=== PATIENT | female | born 1985 | race Caucasian/White ===

== ENCOUNTER 2020-05-27 20:04 | Emergency (ER) | payer OTHER, SELFPAY ==
--- NOTE | ~2020-05-27 | CT_ITS ---
EXAMINATION: CT abdomen pelvis w con EXAM DATE: 05/27/2020 20:52 INDICATION: Abdominal pain. TECHNIQUE: Spiral CT of the abdomen and pelvis was performed following intravenous injection of 100 m L Omnipaque 350. Axial, coronal and sagittal images were reviewed. The dose-length product (DLP) fo r this examination was 174.24 mGy-cm. The exposure was tailored according to patient size (auto mA e xposure control), and iterative reconstruction (ASIR) was used as additional dose reduction technique . There is no prior study for comparison. FINDINGS: There is a gastrostomy tube in position. Along the tract of the gastrostomy tube there is f luid collection consistent with abscess causing inflammation, thickening of the abdominal wall. This measures about 3 x 4 x 5 cm. There is also moderate amount of free intraperitoneal gas, from unknown source. If gastrostomy tube was placed today potentially could be from that. There is also gas extend ing between the left-sided abdominal musculature layers. Small to moderate amount of free pelvic fluid, with some enhancement of the peritoneal surface adjace nt to this, possible peritonitis. No contained abdominal abscess suspected. Low-lying cecum measuring 9 cm in diameter with large amount of hyperdense material inside which could be contrast if patient had scan at another facility. The appendix is also filled with material, no appendicitis. The liver, spleen, adrenal glands and pancreas are unremarkable. Gallbladder is unremarkable. No bi liary obstruction. Portal and splenic veins are patent. Kidneys enhance symmetrically. There is no hydronephrosis. The uterus is retroverted and morphologically normal. The bladder is unremarkabl e. There is no retroperitoneal or pelvic lymphadenopathy. The heart is normal in size. There are no pericardial or pleural effusions. The lung bases are unre markable. There are no osteoblastic or osteolytic lesions identified. IMPRESSION: 1. Gastrostomy tube in position. Abdominal wall abscess contiguous to the gastrostomy tube. Gas betw een layers of left abdominal musculature. 2. Moderate amount of free intraperitoneal gas, potentially could be from gastrostomy if recently pl aced or malfunctioning. 3. Small to moderate free pelvic fluid with some peritoneal enhancement, possible peritonitis. Reviewed, dictated and finalized at location A. IMPRESSION: 1. Gastrostomy tube in position. Abdominal wall abscess contiguous to the juan rostomy tube. Gas between layers of left abdominal musculature. 2. Moderate amount of free intraperitoneal gas, potentially could be from juan rostomy if recently placed or malfunctioning. 3. Small to moderate free pelvic fluid with some peritoneal enhancement, possi ble peritonitis.
[2020-05-27 20:06] VITALS: BP 122/73; PULSE 100; RESP 18; TEMP 37.6; O2SAT 100
--- NOTE | 2020-05-27 20:21 | ED.GENADULT ---
HPI - General Adult General Chief complaint: Unspecified Stated complaint: feeding tube issues Time Seen by Provider: 05/27/20 20:13 Source: RN notes reviewed History of Present Illness HPI narrative: Patient presents to emergency department from home for pain around PEG tube site. Patient states the PEG tube was placed for achalasia at [facility] on Saturday, May [address] Chapman. Patient states that the tube has been functioning properly but she began to have pain starting yesterday that worsened today. The pain is located around the PEG tube with pain worse with movement. She also has noted some redness around the tube. She denies any drainage around the tube she denies any nausea or vomiting but does note a fever up to 101 at home for which did not take any medication. Patient states she has been using the PEG tube without difficulty throughout the week denies any other symptoms at this time Related Data Allergies Allergy/AdvReac Type Severity Reaction Status Date / Time Penicillins AdvReac Unknown Verified 05/27/20 20:53 Review of Systems Review of Systems: Narrative: Gen.: Reports fever ENT: Denies congestion Respiratory: Denies shortness of breath or cough CV: Denies chest pain or palpitations GI: See HPI Musculoskeletal: Denies back pain or muscle pain Neuro: Denies numbness, tingling, weakness or focal weakness Skin: Denies rash Except as documented, all other systems reviewed and negative [facility] Social History Social History (Updated 05/27/20 @ 20:23 by Alejandro Smith DO) Smoking status: Never smoker Exam Narrative: Exam Narrative: APPEARANCE: No acute distress, nontoxic, resting in bed HEENT: Normocephalic, atraumatic, OMM RESPIRATORY: No respiratory distress, clear to auscultation bilaterally with no rhonchi wheezing or rales CARDIOVASCULAR: RRR s murmur ABDOMINAL: Soft nondistended, diffusely tender palpation with increased tenderness left upper quadrant around the PEG tube. PEG tube in place in left upper quadrant with surrounding erythema no drainage no rebound or guarding MUSCULOSKELETAl: Moves all extremities. No clubbing, cyanosis or edema. NEURO: Awake and alert. Following commands, speech normal, no focal deficits SKIN:: Warm, dry. Normal Color PSYCHIATRIC: Normal affect/mood Course Course Emergency Course: Discussed with patient results of CT. Discussed need for transfer and patient in agreement at this time Called and discussed with for Dr Torres at [facility] who accepts patient as a transfer. Request patient started on Levaquin and Flagyl secondary to allergy to penicillin Vital Signs Vital signs: Vital Signs Temperature 99.7 F H 05/27/20 20:06 Pulse Rate 100 05/27/20 20:06 Respiratory Rate 18 05/27/20 20:06 Blood Pressure 122/73 05/27/20 20:06 Pulse Oximetry 100 05/27/20 20:06 Temperature 99.7 F H 05/27/20 20:06 Pulse Rate 107 H 05/28/20 01:31 Respiratory Rate 16 05/28/20 01:31 Blood Pressure 103/66 05/28/20 01:31 Pulse Oximetry 99 05/28/20 01:31 Medical Decision Making Vital Signs Vital Signs: Vital Signs Temperature 99.7 F H 05/27/20 20:06 Pulse Rate 100 05/27/20 20:06 Respiratory Rate 18 05/27/20 20:06 Blood Pressure 122/73 05/27/20 20:06 Pulse Oximetry 100 05/27/20 20:06 Temperature 99.7 F H 05/27/20 20:06 Pulse Rate 107 H 05/28/20 01:31 Respiratory Rate 16 05/28/20 01:31 Blood Pressure 103/66 05/28/20 01:31 Pulse Oximetry 99 05/28/20 01:31 Lab Data Result diagrams: 05/27/20 20:26 05/27/20 21:07 Labs: Lab Results 05/27/20 05/27/20 05/27/20 Range/Units 20:26 20:26 20:43 WBC 18.4 H (4.5-10.0) K/mm3 RBC 4.12 L (4.2-5.4) M/mm3 Hgb 12.1 (12.0-15.0) g/dL Hct 36.4 L (37.0-47.0) % MCV 88.3 (80-100) fl MCH 29.4 (26-34) pg MCHC 33.2 (32-36) g/dl RDW 13.4 (11.5-14.5) % Plt Count 214 (150-375) k/mm3 M
[2020-05-27 20:43] LABS: Basophils Percent Auto 0.2 % (0.2-1.2); Hematocrit 36.4 % (37.0-47.0); Hemoglobin 12.1 g/dL (12.0-15.0); Immature Granulocyte Absolute 0.16 K/mm3 (0.00-0.031); Immature Granulocyte Percent A 0.9 % (0-0.5); Lymphocytes Absolute Auto 1.11 K/mm3 (0.9-3.2); Mean Corpuscular HGB Conc 33.2 g/dl (32-36); Mean Corpuscular Hemoglobin 29.4 pg (26-34); Mean Corpuscular Volume 88.3 fl (80-100); Monocytes Absolute Auto 2.6 K/mm3 (0.1-0.6); Monocytes Percent Auto 14.1 % (2.6-8.5); Neutrophils Absolute Auto 14.5 K/mm3 (1.3-6.7); Neutrophils Percent Auto 78.8 % (45.5-73.1); Platelet Count Result 214 k/mm3 (150-375); Red Blood Count 4.12 M/mm3 (4.2-5.4); Red Cell Distribution Width 13.4 % (11.5-14.5); White Blood Count 18.4 K/mm3 (4.5-10.0)
[2020-05-27] MEDS: SODIUM CHLORIDE 0.9% IV 1,000 ML 999 ML IV CONT (20:54)
[2020-05-27 20:58] LABS: Lactic Acid Reflex 1.3 mmol/L (0.7-2.1)
[2020-05-27 21:26] LABS: Alanine Aminotransferase 12 U/L (4-35); Albumin Level 2.9 g/dL (3.5-5.1); Alkaline Phosphatase 60 U/L (38-126); Anion Gap 8 mmol/L (8-16); Aspartate Amino Transferase 14 U/L (14-36); Bilirubin,Total 0.4 mg/dL (0.2-1.3); Blood Urea Nitrogen 8 mg/dL (7-17); Carbon Dioxide 25 mmol/L (22-30); Chloride 96 mmol/L (98-107); Estimated Glomerular Filt Rate > 60; Glucose 115 mg/dL (65-105); Potassium 3.8 mmol/L (3.4-5.0); Sodium 129 mmol/L (137-145)
[2020-05-27] MEDS: SODIUM CHLORIDE 0.9% IV 1,000 ML 100 ML IV CONT (21:55)
[2020-05-27] MEDS: MORPHINE SULFATE (*CRX) 2 MG/ML INJ IV PUSH (22:02)
[2020-05-27] MEDS: metroNIDAZOLE 500 MG/ISO 100ML 500 MG/100 ML BAG 100 MG IVPB (22:03)
[2020-05-27 22:08] VITALS: BP 103/58; PULSE 99; RESP 18; O2SAT 100
--- NOTE | 2020-05-28 01:15 | PC.NURSE ---
called [facility] to transport patient. [facility] accepted. ETA [phone]
[2020-05-28 01:31] VITALS: BP 103/66; PULSE 107; RESP 16; O2SAT 99
[2020-05-28] MEDS: MORPHINE SULFATE (*CRX) 2 MG/ML INJ IV PUSH ×2 (01:42→02:38)
[2020-05-28 01:57] LABS: Estimated Glomerular Filt Rate > 60
--- NOTE | 2020-05-28 02:00 | PC.NURSE ---
[facility] called and update ETA to [phone]
[2020-05-28] MEDS: ONDANSETRON INJ 4 MG/2 ML VIAL IV PUSH (02:38)
== END 2020-05-28 02:43 | disposition short-term general hospital (02) ==
PROVIDERS: Emergency Provider Emergency Medicine
DX: T81.44XA Sepsis following a procedure, initial encounter (principal); A41.9 Sepsis, unspecified organism; T81.41XA Infection following a procedure, superficial incisional surgical site, initial encounter; L02.211 Cutaneous abscess of abdominal wall; K22.0 Achalasia of cardia
CPT/HCPCS: 36415; 74177; 80053; 83605; 85025; 87040; 96361; 96365; 96367; 96374; 96375; 96376; 99285; J0131; J1956; J2270; J2405; J7030; Q9967

== ENCOUNTER 2022-05-05 02:50 | Emergency (ER) | payer MEDICARE, MEDICAID, SELFPAY ==
[2022-05-05 02:52] VITALS: BP 124/96; PULSE 129; RESP 20; TEMP 36.8; O2SAT 100
[2022-05-05 03:39] LABS: Hematocrit 31.6 % (37.0-47.0); Mean Corpuscular HGB Conc 31.6 g/dl (32-36); Mean Corpuscular Hemoglobin 27.9 pg (26-34); Mean Platelet Volume 9.2 fl (7.4-10.4); Platelet Count Result 182 k/mm3 (150-375); Red Blood Count 3.59 M/mm3 (4.2-5.4); Red Cell Distribution Width 15.7 % (11.5-14.5); White Blood Count 18.2 K/mm3 (4.5-10.0)
[2022-05-05 03:57] LABS: Alanine Aminotransferase 66 U/L (6-35); Albumin Level 3.1 g/dL (3.5-5.1); Alkaline Phosphatase 92 U/L (38-126); Anion Gap 3 mmol/L (8-16); Aspartate Amino Transferase 93 U/L (14-36); Bilirubin,Total 0.5 mg/dL (0.2-1.3); Blood Urea Nitrogen 14 mg/dL (7-17); Calcium 8.8 mg/dL (8.4-10.2); Carbon Dioxide 28 mmol/L (22-30); Chloride 101 mmol/L (98-107); Estimated Glomerular Filt Rate > 60; Glucose 129 mg/dL (65-110); Lipase 16 U/L (23-300); Potassium 3.5 mmol/L (3.4-5.0); Sodium 132 mmol/L (137-145)
[2022-05-05] MEDS: SODIUM CHLORIDE 0.9% IV 1,000 ML 999 ML IV CONT (04:02)
[2022-05-05 04:07] LABS: Band Neutrophils Percent 9 % (0-6); Lymphocytes Absolute Manual 1.09 K/mm3 (1.1-4.5); Lymphocytes Percent Manual 6 % (18-44); Monocytes Absolute Manual 1.82 K/mm3 (0.1-0.90); Monocytes Percent Manual 10 % (3-9); Neutrophils Absolute Manual 15.28 K/mm3 (1.7-7.2); Neutrophils Percent Manual 75 % (46-73); Total Cells Counted 100
[2022-05-05 04:08] LABS: Platelet Estimate Adequate (Adequate); Schistocytes None Seen (NORMAL)
[2022-05-05 04:11] LABS: Appearance Urine Clear (Clear); Bilirubin Urine 1+ (Negative); Blood Urine 2+ (Negative); Color Urine Yellow (Yellow); Glucose Urine UA Negative (Negative); Ketones Urine Negative (Negative); Leukocyte Esterase Ur 3+ LEU/UL (Negative); Nitrate Urine Negative (Negative); Protein Urine 2+ mg/dL (Negative)
[2022-05-05] MEDS: KETOROLAC 30 MG/ML VIAL (*BKC) IV PUSH (04:11)
[2022-05-05 04:13] VITALS: PULSE 103; RESP 18; O2SAT 100
[2022-05-05 04:15] LABS: Bacteria Urine Trace /hpf; Mucus Urine Rare /lpf; Squamous Epithelial Cell Urine Many /hpf (Few); WBC Urine 51-75 /hpf
[2022-05-05 04:16] LABS: Add Urine Microscopic? YES
--- NOTE | 2022-05-05 04:54 | ED.GENADULT ---
HPI - General Adult General Chief complaint: Urogenital-Female Stated complaint: UTI Time Seen by Provider: 05/05/22 03:08 History of Present Illness HPI narrative: Patient is a 36-year-old female who presents ER with concerns for dehydration and UTI. Reports she has been having dark urine that is malodorous for over a week. She is having urinary frequency and urgency. Reports subjective fevers. No chills. Denies back pain. No abdominal discomfort. Patient has a PEG tube due to achalasia in the past but has had a procedure where she is now able to eat and drink. She feels like she has had appropriate intake. Due to previous hospitalizations patient had been having frequent about coming and was encouraged by family. Related Data Allergies Allergy/AdvReac Type Severity Reaction Status Date / Time Penicillins AdvReac Unknown Verified 05/05/22 02:52 [facility] Past Medical History Medical History (Updated 05/05/22 @ 06:50 by Saleem Koehler MD) Achalasia History of gastrostomy tube placement Social History Social History (Updated 05/27/20 @ 20:23 by Alejandro Smith DO) Smoking status: Never smoker Exam Narrative: GENERAL: Anxious-appearing, well-nourished, and in no acute distress. HEAD: Normocephalic, atraumatic. EYES: PERRL and EOMI. CHEST: Clear to auscultation. No respiratory distress. HEART: Regular rate and rhythm. Normal peripheral pulses. ABDOMEN: Soft, nontender, nondistended. EXTREMITIES: Normal range of motion. No edema. SKIN: Warm, dry, no rash. NEURO: Alert and oriented x3. PSYCH: Normal mood and affect. Course Course Emergency Course: Patient very anxious about being in the hospital and refused any IV antibiotics or to be in the hospital any longer. She even walked out before she could receive information about antibiotics being sent to her pharmacy for her. We did catch her and let her know that there would be antibiotics waiting for her at the pharmacy. Vital Signs Vital signs: Vital Signs Temperature 98.2 F 05/05/22 02:52 Pulse Rate 129 H 05/05/22 02:52 Respiratory Rate 20 05/05/22 02:52 Blood Pressure 124/96 H 05/05/22 02:52 Pulse Oximetry 100 05/05/22 02:52 Oxygen Delivery Room Air 05/05/22 02:52 Temperature 98.2 F 05/05/22 02:52 Pulse Rate 103 H 05/05/22 04:13 Respiratory Rate 18 05/05/22 04:13 Blood Pressure 124/96 H 05/05/22 02:52 Pulse Oximetry 100 05/05/22 04:13 Oxygen Delivery Room Air 05/05/22 02:52 Medical Decision Making Vital Signs Vital Signs: Vital Signs Temperature 98.2 F 05/05/22 02:52 Pulse Rate 129 H 05/05/22 02:52 Respiratory Rate 20 05/05/22 02:52 Blood Pressure 124/96 H 05/05/22 02:52 Pulse Oximetry 100 05/05/22 02:52 Oxygen Delivery Room Air 05/05/22 02:52 Temperature 98.2 F 05/05/22 02:52 Pulse Rate 103 H 05/05/22 04:13 Respiratory Rate 18 05/05/22 04:13 Blood Pressure 124/96 H 05/05/22 02:52 Pulse Oximetry 100 05/05/22 04:13 Oxygen Delivery Room Air 05/05/22 02:52 Lab Data Result diagrams: 05/05/22 03:28 05/05/22 03:28 Labs: Lab Results 05/05/22 05/05/22 05/05/22 Range/Units 03:28 03:28 04:04 WBC 18.2 H (4.5-10.0) K/mm3 RBC 3.59 L (4.2-5.4) M/mm3 Hgb 10.0 L (12.0-15.0) g/dL Hct 31.6 L (37.0-47.0) % MCV 88.0 (80-100) fl MCH 27.9 (26-34) pg MCHC 31.6 L (32-36) g/dl RDW 15.7 H (11.5-14.5) % Plt Count 182 (150-375) k/mm3 MPV 9.2 (7.4-10.4) fl Immature Gran % (Auto) Not Reportable Neut % (Auto) Not Reportable Lymph % (Auto) Not Reportable Peach % (Auto) Not Reportable Eos % (Auto) Not Reportable Baso % (Auto) Not Reportable Lymph # (Auto) Not Reportable Peach # (Auto) Not Reportable Eos # (Auto) Not Reportable Baso # (Auto) Not Reportable Abs Immat Gran (auto) Not Reportable Absolute Neuts (auto) Not Reportable Abso
--- NOTE | 2022-05-05 05:00 | PC.NURSE ---
Pt refused additional medication including IV antibiotic and NS. Pt requested to leave AMA. Pt signed form prior to doctor being able to speak with pt. Pt aware of risks of leaving AMA. IV removed at time of departure.
== END 2022-05-05 05:02 | disposition home or self-care (01) ==
PROVIDERS: Emergency Provider Emergency Medicine
DX: N39.0 Urinary tract infection, site not specified (principal); K22.0 Achalasia of cardia; Z93.1 Gastrostomy status
CPT/HCPCS: 36415; 80053; 81001; 81025; 83690; 85025; 87077; 87086; 87186; 96361; 96374; 99284; J1885; J7030

== ENCOUNTER 2023-10-28 10:22 | Emergency (ER) | payer MEDICARE, SELFPAY ==
--- NOTE | ~2023-10-28 | XR_ITS ---
EXAMINATION: XR knee LT min 4V DATE: 10/28/2023 10:43 INDICATION: Left knee pain. TECHNIQUE: 4 views of left knee were obtained. COMPARISON: None. FINDINGS: Bone alignment is normal. No fracture. Joint spaces are normal. No knee joint effusion. The re is prepatellar soft tissue swelling. IMPRESSION: 1. No fracture. Reviewed, dictated and finalized at location E. IMPRESSION: 1. No fracture.
[2023-10-28 10:25] VITALS: BP 148/87; PULSE 98; RESP 16; TEMP 36.4; O2SAT 100
--- NOTE | 2023-10-28 10:48 | ED.LOWEXIN ---
HPI - Extremity Injury (Lower) General Chief Complaint: Extremity Injury, Lower Stated Complaint: left knee pain and swelling-no injury Time Seen by Provider: 10/28/23 10:43 History of Present Illness HPI Narrative: Pt presents with pain to left knee and swelling for 4 days. Pt denies specific injury but did strike knee last week with six pack she was carrying but didn't think much of it at the time. Pt does not kneel on that knee repeatedly. Pt says she does a lot of bending and squatting at work. Related Data Allergies Allergy/AdvReac Type Severity Reaction Status Date / Time Penicillins AdvReac Unknown Verified 10/28/23 10:23 Review of Systems Review of Systems: All systems reviewed & are unremarkable except as noted in HPI and below PMFSH Past Medical History Medical History (Updated 10/28/23 @ 11:17 by Shelly Bautista III, DO) Achalasia History of gastrostomy tube placement Social History Social History (Updated 05/27/20 @ 20:23 by Alejandro Smith, DO) Smoking status: Never smoker Exam Const: General: healthy appearing and no acute distress Nutritional Appearance: well nourished Orientation/consciousness: patient oriented x3 Limitations: no limitations Resp: Effort & Inspection: normal respiratory effort Auscultation: clear to auscultation bilaterally Cardio: Rate: regular rate Rhythm: regular rhythm GI: GI Palp: Yes Soft to palpation Auscultation: normal bowel sounds Skin: General skin exam: normal color Rashes: no rashes Wounds: no wounds Neuro: General: patient oriented x3, moves all extremities, no meningeal signs, no focal motor deficits and CN's II-XI intact bilaterally Speech: normal speech Extrem: Other: swelling and tenderness over prepatellar bursa but no erythema, no obvious deformity or ligamentous laxity on exam. Psych: Mental Status: mental status grossly normal Affect: normal affect Attitude: cooperative Course Vital Signs Vital signs: Vital Signs Temperature 97.6 F 10/28/23 10:25 Pulse Rate 98 10/28/23 10:25 Respiratory Rate 16 10/28/23 10:25 Blood Pressure 148/87 H 10/28/23 10:25 Pulse Oximetry 100 10/28/23 10:25 Temperature 97.6 F 10/28/23 10:25 Pulse Rate 98 10/28/23 10:25 Respiratory Rate 16 10/28/23 10:25 Blood Pressure 148/87 H 10/28/23 10:25 Pulse Oximetry 100 10/28/23 10:25 MDM - Extremity Injury (Lower) MDM Narrative Medical decision making narrative: seems like prepatellar bursitis but could be small patellar fx so will get x ray to rule out fx. no fx on x ray. ayaz crutches naprosyn and lt duty Discharge Plan Discharge Clinical Impression: Bursitis, prepatellar, left Patient Disposition: Home, Self-Care Condition: Stable Instructions: Antibiotic Form, Knee Bursitis (ED) Prescriptions: New naproxen [Naprosyn] 500 mg tablet 500 mg PO BID Qty: 20 0RF No Action cefpodoxime 200 mg tablet 200 mg PO BID Qty: 20 0RF Rx Instructions: must administer with a meal/food ondansetron 4 mg tablet,disintegrating 4 mg PO Q6H PRN (Reason: nausea and vomiting) Qty: 10 0RF Follow-up/Referrals: UNKNOWN,DOCTOR [Non-Staff] - Stand Alone Forms: Work/School Release IP
== END 2023-10-28 11:39 | disposition home or self-care (01) ==
PROVIDERS: Emergency Provider Emergency Medicine; Referring Provider Family Medicine
DX: M70.42 Prepatellar bursitis, left knee (principal)
CPT/HCPCS: 73564; 99283